=== PATIENT | female | born 2000 | race Caucasian/White ===

== ENCOUNTER 2020-07-27 12:49 | Emergency (ER) | payer OTHER ==
[2020-07-27 13:27] VITALS: O2SAT 100
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
[2020-07-27 13:52] LABS: Appearance CLEAR (CLEAR); Bilirubin NEGATIVE (NEGATIVE); Blood SMALL Ery/ul (0-5); Glucose NEGATIVE (NEGATIVE); Ketones NEGATIVE (NEGATIVE); Leukocyte Esterase NEGATIVE (NEGATIVE); Nitrite NEGATIVE (NEGATIVE); Protein,Urine Dip NEGATIVE (Negative); RBC 0-2 /HPF (0-2); Specific Gravity 1.019 (1.005-1.025); Urobilinogen NEGATIVE mg/dL (0-1)
[2020-07-27 14:14] VITALS: BP 116/79; PULSE 78
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
== END 2020-07-27 14:45 | disposition home or self-care (01) ==
LOC: ED 12:49
DX: S16.1XXA Strain of muscle, fascia and tendon at neck level, initial encounter (principal); V47.5XXA Car driver injured in collision with fixed or stationary object in traffic accident, initial encounter; M54.2 Cervicalgia; R51.9 Headache, unspecified
CPT/HCPCS: 70450; 72125; 81001; 84703; 99284